=== PATIENT | female | born 1935 ===

== ENCOUNTER 2018-08-26 14:15 | Emergency (ER) | payer OTHER ==
[~2018-08-26] VITALS: Ht 157.5 cm; Wt 77.1 kg
[2018-08-26] MEDS ORDERED: DUI500 PO (22:31)
== END 2018-08-26 22:50 | disposition home or self-care (01) ==
LOC: ER 14:15
DX: J40 Bronchitis, not specified as acute or chronic (principal)

== ENCOUNTER 2018-10-27 10:07 | Emergency (ER) | payer OTHER ==
[~2018-10-27] VITALS: Ht 160 cm; Wt 58.1 kg
[~2018-10-27 10:07] MED LIST: DUI500 PO
[2018-10-27] MEDS ORDERED: AVAPRO75 MG PO (10:40)
[2018-10-27] MEDS ORDERED: ARICEPT5 MG PO (10:40)
[2018-10-27] MEDS ORDERED: ZOLOFT25 MG PO (10:41)
[2018-10-27] MEDS ORDERED: RISPERDAL M-TA0.5 MG PO (10:41)
[2018-10-27] MEDS ORDERED: ZOCOR20 MG PO (10:42)
== END 2018-10-27 14:37 | disposition home or self-care (01) ==
LOC: ER 10:07
DX: N39.0 Urinary tract infection, site not specified (principal); B96.89 Other specified bacterial agents as the cause of diseases classified elsewhere; M54.5 Low back pain